=== PATIENT | male | born 1960 | race African-American/Black ===

== ENCOUNTER 2023-06-08 23:42 | Observation (INO) | payer OTHER ==
[2023-06-08 23:52] VITALS: BMI 24.9
[2023-06-09] MEDS ORDERED: ACETAMINOPHEN 1000 MG/100 ML BAG IVPB ONE (03:03)
[2023-06-09] MEDS ORDERED: ACETAMINOPHEN INJECTION 100 ML IVPB ONE (03:13)
[2023-06-09 03:14] LABS: POTASSIUM 3.9 mmol/L (3.5-5.1)
[2023-06-09 03:16] LABS: CALCIUM 8.9 mg/dL (8.5-10.1)
[2023-06-09 03:17] LABS: ALBUMIN 4.3 g/dl (3.4-5.0); BLOOD UREA NITROGEN 11.6 mg/dL (7-18); MAGNESIUM 1.8 mg/dL (1.8-2.4)
[2023-06-09 03:19] LABS: BASO % 0.6 % (0-2.0); EOS % 0.5 % (0-4.5); HEMATOCRIT 42.5 % (35.4-49); HEMOGLOBIN 14.4 GM/dL (11.7-16.9); MCH 32.9 pg (25.7-33.7); MCHC 33.8 g/dl (32.0-35.9); MEAN CELL VOLUME 97.3 fl (80-96); MEAN PLT VOLUME 6.9 fl (7.5-11.1); MONO % 6.4 % (3.8-10.2); NEUT % 58.5 % (42.8-82.8); PLATELET COUNT 377 10^3/uL (134-434); RBC 4.37 M/mm3 (4.00-5.60); RDW 13.7 % (11.9-15.9); WHITE BLOOD COUNT 12.8 K/mm3 (4.0-10.0)
[2023-06-09 03:20] LABS: CREATININE 1.1 mg/dL (0.55-1.3); PHOSPHOROUS 2.6 mg/dL (2.5-4.9)
[2023-06-09 03:21] LABS: BILIRUBIN,TOTAL 0.4 mg/dL (0.2-1); TOT PROT 7.3 g/dl (6.4-8.2)
[2023-06-09 04:06] LABS: PH,URINE 6.5 (5.0-8.0); URINE APPEARANCE CLEAR; URINE BILIRUBIN NEGATIVE (NEGATIVE); URINE COLOR YELLOW; URINE GLUCOSE (UA) NEGATIVE (NEGATIVE); URINE KETONE NEGATIVE (NEGATIVE); URINE LEUK ESTERASE NEGATIVE (NEGATIVE); URINE NITRITE NEGATIVE (NEGATIVE); URINE PROTEIN NEGATIVE (NEGATIVE)
[2023-06-09] MEDS ORDERED: KETOROLAC TROMETHAMINE 30 MG/1 ML VIAL IVPUSH ONE (04:39)
[2023-06-09] MEDS ORDERED: SODIUM CHLORIDE 0.9% 500 ML INFUS.BAG IV ONE (04:39)
[2023-06-09] MEDS ORDERED: LIDOCAINE 5% TOPICAL PATCH TP ONE (04:39)
[2023-06-09] MEDS ORDERED: KETOROLAC TROMETHAMINE 30 MG/1 ML VIAL ONE (04:46)
[2023-06-09] MEDS ORDERED: LIDOCAINE 5% TOPICAL PATCH ONE (04:46)
[2023-06-09] MEDS ORDERED: ACETAMINOPHEN 500 MG TABLET (FP) PO PRN (10:39)
[2023-06-09] MEDS ORDERED: morphine CARPU-JECT 4 MG/1 ML DISP.SYRIN IVPUSH PRN (10:41)
[2023-06-09] MEDS ORDERED: morphine SULFATE 4 MG/ML VIAL IVPUSH PRN (10:44)
[2023-06-09] MEDS: oxyCODONE HCL 5 MG TABLET PO PRN ×4 (11:09→23:32)
[2023-06-09] MEDS: ENOXAPARIN NA (PORCINE) 40 MG/0.4 ML DISP.SYRIN SQ SCH ×2 (11:10→14:26)
[2023-06-09] MEDS: LISINOPRIL 10 MG TABLET PO SCH (12:33)
[2023-06-09] MEDS: GABAPENTIN 400 MG CAPSULE PO SCH ×2 (13:32→21:34)
[2023-06-09] MEDS: NICOTINE 21 MG/24 HOURS TOPICAL PATCH TD SCH (18:06)
[2023-06-09] MEDS: LIDOCAINE PATCH REMOVAL MC SCH ×4 (21:34)
[2023-06-09] MEDS ORDERED: LIDOCAINE PATCH REMOVAL MC SCH (22:00)
[2023-06-09 22:38] VITALS: RESP 18
[2023-06-10] MEDS: oxyCODONE HCL 5 MG TABLET PO PRN ×4 (02:03→15:43)
[2023-06-10] MEDS: GABAPENTIN 400 MG CAPSULE PO SCH ×2 (06:08→14:14)
[2023-06-10 06:57] LABS: BASO % 0.6 % (0-2.0); EOS % 0.9 % (0-4.5); HEMATOCRIT 43.1 % (35.4-49); HEMOGLOBIN 14.1 GM/dL (11.7-16.9); LYMPH % 49.5 % (8-40); MCH 32.3 pg (25.7-33.7); MCHC 32.6 g/dl (32.0-35.9); MEAN PLT VOLUME 7.6 fl (7.5-11.1); MONO % 5.5 % (3.8-10.2); NEUT % 43.5 % (42.8-82.8); PLATELET COUNT 395 10^3/uL (134-434); RBC 4.36 M/mm3 (4.00-5.60); RDW 13.5 % (11.9-15.9); WHITE BLOOD COUNT 14.7 K/mm3 (4.0-10.0)
[2023-06-10] MEDS ORDERED: LEVOTHYROXINE NA 50 MCG TABLET (FP) PO SCH (07:00)
[2023-06-10 07:10] LABS: POTASSIUM 4.5 mmol/L (3.5-5.1)
[2023-06-10 07:16] LABS: CALCIUM 9.2 mg/dL (8.5-10.1)
[2023-06-10 07:17] LABS: ALBUMIN 3.6 g/dl (3.4-5.0); MAGNESIUM 1.9 mg/dL (1.8-2.4)
[2023-06-10 07:20] LABS: CREATININE 0.9 mg/dL (0.55-1.3); PHOSPHOROUS 3.2 mg/dL (2.5-4.9)
[2023-06-10 07:21] LABS: TOT PROT 6.6 g/dl (6.4-8.2)
[2023-06-10 07:22] LABS: BILIRUBIN,TOTAL 0.5 mg/dL (0.2-1)
[2023-06-10] MEDS: ENOXAPARIN NA (PORCINE) 40 MG/0.4 ML DISP.SYRIN SQ SCH (09:11)
[2023-06-10] MEDS: NICOTINE 21 MG/24 HOURS TOPICAL PATCH TD SCH (09:11)
[2023-06-10] MEDS: LISINOPRIL 10 MG TABLET PO SCH (09:17)
[2023-06-10] MEDS ORDERED: HYDROCHLOROTHIAZIDE 12.5 MG CAPSULE (FP) PO SCH (10:00)
[2023-06-10] MEDS ORDERED: TAMSULOSIN HCL 0.4 MG CAP PO SCH (10:00)
[2023-06-10] MEDS ORDERED: FINASTERIDE 5 MG TABLET (FP) PO SCH (10:00)
[2023-06-10] MEDS ORDERED: LIDOCAINE 5% TOPICAL PATCH TP SCH (10:00)
[2023-06-10] MEDS ORDERED: AMITRIPTYLINE HCL 25 MG TABLET PO SCH (10:00)
[2023-06-10 15:13] VITALS: BP 134/84; PULSE 80; TEMP 97.9
== END 2023-06-10 18:23 | disposition left against medical advice (07) ==
LOC: JER 23:42 → JERBED 06-09 03:54 → J4S 06-09 08:32
PROVIDERS: ADMIT Internal Medicine; ATTEND Internal Medicine
PROC: 3E033NZ Introduction of Analgesics, Hypnotics, Sedatives into Peripheral Vein, Percutaneous Approach (ICD-10-PCS; principal; 2023-06-09)
PROC: 3E023GC Introduction of Other Therapeutic Substance into Muscle, Percutaneous Approach (ICD-10-PCS; 2023-06-09)
PROC: 3E0333Z Introduction of Anti-inflammatory into Peripheral Vein, Percutaneous Approach (ICD-10-PCS; 2023-06-09)
PROC: 3E0337Z Introduction of Electrolytic and Water Balance Substance into Peripheral Vein, Percutaneous Approach (ICD-10-PCS; 2023-06-09)
DX: M51.26 Other intervertebral disc displacement, lumbar region (principal); M47.9 Spondylosis, unspecified; M48.00 Spinal stenosis, site unspecified; S09.90XA Unspecified injury of head, initial encounter; R29.6 Repeated falls; E03.9 Hypothyroidism, unspecified; R55 Syncope and collapse; G89.29 Other chronic pain; F11.20 Opioid dependence, uncomplicated; I10 Essential (primary) hypertension; W18.39XA Other fall on same level, initial encounter; Y93.89 Activity, other specified; Y92.89 Other specified places as the place of occurrence of the external cause; N40.0 Benign prostatic hyperplasia without lower urinary tract symptoms; F25.9 Schizoaffective disorder, unspecified; G62.9 Polyneuropathy, unspecified; Z29.8 Encounter for other specified prophylactic measures; F17.210 Nicotine dependence, cigarettes, uncomplicated
CPT/HCPCS: 36415; 70450-TC; 71045-TC-FY; 72125-TC; 72131-TC; 80053; 81003; 83735; 84100; 84484; 85025; 87086; 93005; 93010; 93306-TC; 96372; 96374; 96375; 97116-GP; 97161-GP; 99285-25; G0378

== ENCOUNTER 2023-06-17 16:32 | Inpatient (IN) | payer OTHER ==
[2023-06-17 17:13] VITALS: BMI 29.8
[2023-06-17] MEDS ORDERED: diazePAM 5 MG TABLET PO ONE (18:07)
[2023-06-17] MEDS ORDERED: LIDOCAINE 5% TOPICAL PATCH TP ONE (18:07)
[2023-06-17] MEDS ORDERED: DEXAMETHASONE 4 MG TABLET (FP) PO ONE (18:08)
[2023-06-17] MEDS ORDERED: LIDOCAINE 5% TOPICAL PATCH ONE (18:17)
[2023-06-17] MEDS ORDERED: diazePAM 5 MG TABLET ONE (18:17)
[2023-06-17] MEDS ORDERED: DEXAMETHASONE 4 MG TABLET (FP) ONE (18:17)
[2023-06-17] MEDS ORDERED: morphine CARPU-JECT 4 MG/1 ML DISP.SYRIN IVPUSH ONE (19:09)
[2023-06-17] MEDS ORDERED: morphine SULFATE 4 MG/ML VIAL ONE (19:34)
[2023-06-17 19:48] LABS: BASO % 0.6 % (0-2.0); EOS % 0.6 % (0-4.5); HEMATOCRIT 44.2 % (35.4-49); HEMOGLOBIN 14.9 GM/dL (11.7-16.9); LYMPH % 45.2 % (8-40); MCH 32.7 pg (25.7-33.7); MCHC 33.7 g/dl (32.0-35.9); MEAN CELL VOLUME 97.1 fl (80-96); MEAN PLT VOLUME 6.9 fl (7.5-11.1); MONO % 6.6 % (3.8-10.2); PLATELET COUNT 394 10^3/uL (134-434); RBC 4.55 M/mm3 (4.00-5.60); RDW 13.7 % (11.9-15.9); WHITE BLOOD COUNT 10.1 K/mm3 (4.0-10.0)
[2023-06-17 20:12] LABS: POTASSIUM 3.9 mmol/L (3.5-5.1)
[2023-06-17 20:14] LABS: BLOOD UREA NITROGEN 9.4 mg/dL (7-18)
[2023-06-17 20:15] LABS: ALBUMIN 4.2 g/dl (3.4-5.0)
[2023-06-17 20:17] LABS: CREATININE 0.9 mg/dL (0.55-1.3)
[2023-06-17 20:19] LABS: BILIRUBIN,TOTAL 0.4 mg/dL (0.2-1)
[2023-06-17] MEDS: LIDOCAINE PATCH REMOVAL MC SCH (21:27)
[2023-06-18] MEDS ORDERED: KETOROLAC TROMETHAMINE 30 MG/1 ML VIAL IVPUSH ONE (00:45)
[2023-06-18] MEDS ORDERED: KETOROLAC TROMETHAMINE 30 MG/1 ML VIAL IVPB PRN (00:46)
[2023-06-18] MEDS ORDERED: HYDROmorphone HCl 2 MG/ML VIAL IVPB ONE (00:50)
[2023-06-18] MEDS ORDERED: HYDROmorphone HCl 2 MG/ML VIAL IVPUSH ONE (00:50)
[2023-06-18] MEDS ORDERED: HYDROmorphone HCl 2 MG/ML VIAL IVPUSH PRN (00:50)
[2023-06-18] MEDS ORDERED: ALBUTEROL SO4 HFA INHALER IH PRN (00:55)
[2023-06-18] MEDS ORDERED: DICLOFENAC SODIUM TP PRN (00:55)
[2023-06-18] MEDS ORDERED: HYDROmorphone HCl 2 MG/ML VIAL IVPB PRN (01:12)
[2023-06-18] MEDS ORDERED: NALOXONE HCL 0.4 MG/ML VIAL IVPUSH PRN (01:12)
[2023-06-18] MEDS: diazePAM 5 MG TABLET PO SCH ×3 (01:35→21:41)
[2023-06-18] MEDS: ENOXAPARIN NA (PORCINE) 40 MG/0.4 ML DISP.SYRIN SQ ONE ×2 (01:35→01:52)
[2023-06-18] MEDS ORDERED: ZOLPIDEM TARTRATE 5 MG TABLET PO PRN (06:37)
[2023-06-18] MEDS: LEVOTHYROXINE NA 50 MCG TABLET (FP) PO SCH (06:57)
[2023-06-18] MEDS ORDERED: oxyCODONE HCL 5 MG TABLET PO PRN ×2 (08:41→11:32)
[2023-06-18] MEDS ORDERED: PATIENT'S OWN MEDICATION (NON-FORMULARY) (Oxycodone Hcl/Acetaminophen [Endocet 10-325 Mg T PO PRN (08:46)
[2023-06-18] MEDS ORDERED: PATIENT'S OWN MEDICATION (NON-FORMULARY) (Lisinopril/Hydrochlorothiazide [Lisinopril-Hctz PO SCH (10:00)
[2023-06-18] MEDS ORDERED: CYCLOBENZAPRINE HCL 10 MG TABLET (FP) PO SCH (10:00)
[2023-06-18] MEDS: ACETAMINOPHEN 500 MG TABLET (FP) PO SCH ×3 (10:05→21:39)
[2023-06-18] MEDS: TAMSULOSIN HCL 0.4 MG CAP PO SCH (10:07)
[2023-06-18] MEDS: FENOFIBRIC ACID 135 MG CAP PO SCH (10:07)
[2023-06-18] MEDS: FINASTERIDE 5 MG TABLET (FP) PO SCH (10:07)
[2023-06-18] MEDS: LISINOPRIL 10 MG TABLET PO SCH (10:08)
[2023-06-18] MEDS: DEXAMETHASONE 4 MG TABLET (FP) PO SCH (10:09)
[2023-06-18] MEDS: HYDROCHLOROTHIAZIDE 12.5 MG CAPSULE (FP) PO SCH (10:11)
[2023-06-18] MEDS: NICOTINE 14 MG/24 HOURS TOPICAL PATCH TD SCH (10:11)
[2023-06-18] MEDS: PANTOPRAZOLE 40 MG TABLET PO SCH (10:11)
[2023-06-18 11:01] LABS: BASO % 0.1 % (0-2.0); HEMOGLOBIN 14.7 GM/dL (11.7-16.9); LYMPH % 17.6 % (8-40); MCH 33.1 pg (25.7-33.7); MCHC 34.1 g/dl (32.0-35.9); MEAN PLT VOLUME 7.2 fl (7.5-11.1); MONO % 3.6 % (3.8-10.2); NEUT % 78.7 % (42.8-82.8); PLATELET COUNT 401 10^3/uL (134-434); RBC 4.44 M/mm3 (4.00-5.60); RDW 13.6 % (11.9-15.9); WHITE BLOOD COUNT 14.9 K/mm3 (4.0-10.0)
[2023-06-18] MEDS: AMITRIPTYLINE HCL 25 MG TABLET PO SCH (11:17)
[2023-06-18 11:24] LABS: POTASSIUM 4.6 mmol/L (3.5-5.1)
[2023-06-18 11:27] LABS: CALCIUM 9.1 mg/dL (8.5-10.1)
[2023-06-18 11:28] LABS: ALBUMIN 3.8 g/dl (3.4-5.0); BLOOD UREA NITROGEN 15.5 mg/dL (7-18); MAGNESIUM 1.9 mg/dL (1.8-2.4)
[2023-06-18 11:31] LABS: PHOSPHOROUS 2.6 mg/dL (2.5-4.9)
[2023-06-18 11:33] LABS: TOT PROT 6.8 g/dl (6.4-8.2)
[2023-06-18 12:06] LABS: ERYTHROCYTE SEDIMENTATION RATE 1 mm/hr (0-20)
[2023-06-18] MEDS: GABAPENTIN 400 MG CAPSULE PO SCH ×2 (15:07→21:39)
[2023-06-18] MEDS: oxyCODONE HCL 5 MG TABLET PO PRN (21:40)
[2023-06-18] MEDS: LIDOCAINE PATCH REMOVAL MC SCH (21:53)
[2023-06-18] MEDS ORDERED: DOCUSATE SODIUM 100 MG CAPSULE (FP) PO SCH (22:00)
[2023-06-18] MEDS ORDERED: MONTELUKAST NA 10 MG TABLET PO SCH (22:00)
[2023-06-19] MEDS: oxyCODONE HCL 5 MG TABLET PO PRN (01:33)
[2023-06-19] MEDS: ACETAMINOPHEN 500 MG TABLET (FP) PO SCH ×2 (05:19→10:29)
[2023-06-19] MEDS: GABAPENTIN 400 MG CAPSULE PO SCH (05:19)
[2023-06-19 06:09] VITALS: BP 140/86; PULSE 64; RESP 20; TEMP 97.4
[2023-06-19] MEDS: LEVOTHYROXINE NA 50 MCG TABLET (FP) PO SCH (06:29)
[2023-06-19] MEDS: TAMSULOSIN HCL 0.4 MG CAP PO SCH (07:42)
[2023-06-19] MEDS ORDERED: ACETAMINOPHEN 500 MG TABLET (FP) PO SCH (10:00)
[2023-06-19] MEDS ORDERED: LIDOCAINE 5% TOPICAL PATCH TP SCH (10:00)
[2023-06-19] MEDS: FENOFIBRIC ACID 135 MG CAP PO SCH (10:27)
[2023-06-19] MEDS: FINASTERIDE 5 MG TABLET (FP) PO SCH (10:28)
[2023-06-19] MEDS: DEXAMETHASONE 4 MG TABLET (FP) PO SCH (10:30)
[2023-06-19] MEDS: LISINOPRIL 10 MG TABLET PO SCH (10:33)
[2023-06-19] MEDS: diazePAM 5 MG TABLET PO SCH (10:33)
[2023-06-19] MEDS: PANTOPRAZOLE 40 MG TABLET PO SCH (10:33)
[2023-06-19] MEDS: NICOTINE 14 MG/24 HOURS TOPICAL PATCH TD SCH (10:33)
[2023-06-19] MEDS: AMITRIPTYLINE HCL 25 MG TABLET PO SCH (10:34)
[2023-06-19] MEDS: HYDROCHLOROTHIAZIDE 12.5 MG CAPSULE (FP) PO SCH (10:44)
[2023-06-19] MEDS ORDERED: LIDOCAINE PATCH REMOVAL MC SCH (22:00)
== END 2023-06-19 11:53 | disposition home health service (06) | DRG 552 ==
LOC: JER 16:32 → JERBED 19:05 → OBSVTOIN 22:48 → J8W 23:34
PROVIDERS: ADMIT Internal Medicine; ATTEND Nurse Practitioner Acute Care
DX: M48.061 Spinal stenosis, lumbar region without neurogenic claudication (principal); F11.20 Opioid dependence, uncomplicated; M51.36 Other intervertebral disc degeneration, lumbar region; I10 Essential (primary) hypertension; N40.0 Benign prostatic hyperplasia without lower urinary tract symptoms; E03.9 Hypothyroidism, unspecified; F25.9 Schizoaffective disorder, unspecified; G62.9 Polyneuropathy, unspecified; M54.59 Other low back pain; J45.909 Unspecified asthma, uncomplicated; F17.200 Nicotine dependence, unspecified, uncomplicated
CPT/HCPCS: 36415; 72158-TC; 80053; 83735; 84100; 85025; 85651; 86140; 93005; 93010; 97116-GP; 97161-GP; 99285-25; A9579; G0378